=== PATIENT | male | born 1955 | race Caucasian/White ===

== ENCOUNTER 2022-01-19 13:11 | Inpatient (IN) | payer OTHER ==
[2022-01-19 13:41] VITALS: BMI 17.2
[2022-01-19] MEDS ORDERED: IBUPROFEN 400 MG TABLET (FP) PO PRN (13:59)
[2022-01-19] MEDS ORDERED: LOPERAMIDE HCL 2 MG CAPSULE PO PRN (13:59)
[2022-01-19] MEDS ORDERED: NALOXONE HCL (KLOXXADO) 8 MG SPRAY NS PRN (13:59)
[2022-01-19] MEDS ORDERED: IBUPROFEN 600 MG TABLET (FP) PO PRN (13:59)
[2022-01-19] MEDS ORDERED: NICOTINE 10 MG CARTRIDGE (INHALER) IH PRN (13:59)
[2022-01-19] MEDS ORDERED: BISMUTH SUBSALICYLATE 524 MG/30 ML PO PRN (13:59)
[2022-01-19] MEDS ORDERED: methaDONE HCL 10 MG TABLET (FOR DETOX USE ONLY) PO ONE ×2 (13:59→17:30)
[2022-01-19] MEDS ORDERED: MAGNESIUM HYDROX 2400MG/30ML ORAL SUSPENSION 30 ML CUP PO PRN (13:59)
[2022-01-19] MEDS ORDERED: DICYCLOMINE HCL 10 MG CAPSULE PO PRN (13:59)
[2022-01-19] MEDS ORDERED: BENZOCAINE/MENTHOL (CHLORASEPTIC ) LOZENGE MM PRN (13:59)
[2022-01-19] MEDS ORDERED: ACETAMINOPHEN 325 MG TABLET (FP) PO PRN ×2 (13:59)
[2022-01-19] MEDS ORDERED: MAG HYDROX/AL HYDROX/SIMETH 30 ML UNIT-DOSE CUP PO PRN (13:59)
[2022-01-19] MEDS ORDERED: cloNIDine HCL 0.1 MG TABLET PO ONE (14:07)
[2022-01-19] MEDS ORDERED: cloNIDine HCL 0.1 MG TABLET ONE ×2 (14:13→14:19)
[2022-01-19] MEDS: METHOCARBAMOL 500 MG TABLET PO PRN (18:23)
[2022-01-19] MEDS: cloNIDine HCL 0.1 MG TABLET PO PRN (23:06)
[2022-01-19] MEDS: MELATONIN 5 MG TABLETS PO SCH (23:07)
[2022-01-19] MEDS: THIAMINE HCL 100 MG TABLET (FP) PO SCH (23:07)
[2022-01-20] MEDS: amLODIPine BESYLATE 10 MG TABLET (FP) PO SCH (09:55)
[2022-01-20] MEDS: METHOCARBAMOL 500 MG TABLET PO PRN ×2 (09:55→18:16)
[2022-01-20] MEDS: PRENATAL VITAMINS W/ FOLIC ACID TABLET (FP) PO SCH (09:55)
[2022-01-20] MEDS: cloNIDine HCL 0.1 MG TABLET PO PRN (09:55)
[2022-01-20] MEDS ORDERED: methaDONE HCL 10 MG TABLET (FOR DETOX USE ONLY) PO ONE (10:00)
[2022-01-20] MEDS ORDERED: ALBUTEROL SO4 0.083% IH SOL 2.5 MG/3 ML VIAL.NEB. NEB PRN (10:17)
[2022-01-20] MEDS: ALBUTEROL SO4 HFA INHALER IH PRN ×2 (10:27→22:52)
[2022-01-20 12:24] LABS: CALCIUM 9.7 mg/dL (8.5-10.1)
[2022-01-20 12:25] LABS: ALBUMIN 3.5 g/dl (3.4-5.0); BLOOD UREA NITROGEN 22.6 mg/dL (7-18)
[2022-01-20 12:28] LABS: CREATININE 1.2 mg/dL (0.55-1.3)
[2022-01-20 12:29] LABS: BILIRUBIN,TOTAL 0.5 mg/dL (0.2-1); TOT PROT 7.8 g/dl (6.4-8.2)
[2022-01-20 12:30] LABS: HEMATOCRIT 40.5 % (35.4-49); HEMOGLOBIN 13.7 GM/dL (11.7-16.9); MCH 28.5 pg (25.7-33.7); MCHC 33.9 g/dl (32.0-35.9); PLATELET COUNT 218 10^3/uL (134-434); RBC 4.82 M/mm3 (4.00-5.60); RDW 14.5 % (11.9-15.9); WHITE BLOOD COUNT 4.5 K/mm3 (4.0-10.0)
[2022-01-20] MEDS ORDERED: cloNIDine HCL 0.1 MG TABLET PO ONE (17:57)
[2022-01-20] MEDS: MELATONIN 5 MG TABLETS PO SCH (22:51)
[2022-01-20] MEDS: THIAMINE HCL 100 MG TABLET (FP) PO SCH (22:52)
[2022-01-21] MEDS: cloNIDine HCL 0.1 MG TABLET PO PRN (06:29)
[2022-01-21] MEDS: amLODIPine BESYLATE 10 MG TABLET (FP) PO SCH (09:51)
[2022-01-21] MEDS: METHOCARBAMOL 500 MG TABLET PO PRN (09:51)
[2022-01-21] MEDS: PRENATAL VITAMINS W/ FOLIC ACID TABLET (FP) PO SCH (09:51)
[2022-01-21] MEDS: NIFEdipine E.R. 90 MG TABLET PO SCH (09:51)
[2022-01-21] MEDS: ALBUTEROL SO4 HFA INHALER IH PRN ×2 (09:56→20:35)
[2022-01-21] MEDS: THIAMINE HCL 100 MG TABLET (FP) PO SCH (22:46)
[2022-01-21] MEDS: MELATONIN 5 MG TABLETS PO SCH (22:46)
[2022-01-22] MEDS: METHOCARBAMOL 500 MG TABLET PO PRN ×2 (06:02→17:38)
[2022-01-22] MEDS: NIFEdipine E.R. 90 MG TABLET PO SCH (09:17)
[2022-01-22] MEDS: amLODIPine BESYLATE 10 MG TABLET (FP) PO SCH (09:18)
[2022-01-22] MEDS: PRENATAL VITAMINS W/ FOLIC ACID TABLET (FP) PO SCH (09:18)
[2022-01-22] MEDS ORDERED: methaDONE HCL 10 MG TABLET (FOR DETOX USE ONLY) PO ONE (10:00)
[2022-01-22] MEDS: THIAMINE HCL 100 MG TABLET (FP) PO SCH (22:25)
[2022-01-22] MEDS: MELATONIN 5 MG TABLETS PO SCH (22:26)
[2022-01-23 09:13] VITALS: RESP 18
[2022-01-23] MEDS: amLODIPine BESYLATE 10 MG TABLET (FP) PO SCH (10:19)
[2022-01-23] MEDS: NIFEdipine E.R. 90 MG TABLET PO SCH (10:19)
[2022-01-23] MEDS: PRENATAL VITAMINS W/ FOLIC ACID TABLET (FP) PO SCH (10:19)
[2022-01-23] MEDS: ALBUTEROL SO4 HFA INHALER IH PRN (10:20)
[2022-01-23 12:46] VITALS: BP 159/101; PULSE 70; TEMP 97.3
== END 2022-01-23 14:54 | disposition home or self-care (01) | DRG 897 ==
LOC: YASAS 13:11 → Y6N 14:42
PROVIDERS: ADMIT Allergy & Immunology; ATTEND Surgery
PROC: HZ2ZZZZ Detoxification Services for Substance Abuse Treatment (ICD-10-PCS; principal; 2022-01-19)
DX: F11.23 Opioid dependence with withdrawal (principal); F14.20 Cocaine dependence, uncomplicated; F17.210 Nicotine dependence, cigarettes, uncomplicated; I10 Essential (primary) hypertension; J44.9 Chronic obstructive pulmonary disease, unspecified; R07.9 Chest pain, unspecified; Z86.19 Personal history of other infectious and parasitic diseases; Z85.819 Personal history of malignant neoplasm of unspecified site of lip, oral cavity, and pharynx
CPT/HCPCS: 36415; 80053; 85027; 86780; 94640; C9803-CS; U0003; U0005

== ENCOUNTER 2022-01-20 13:51 | Emergency (ER) | payer OTHER ==
[2022-01-20 14:17] VITALS: TEMP 97.8; BMI 17.2
[2022-01-20] MEDS ORDERED: ALBUTEROL SO4 2.5/IPRATROPIUM 0.5 INH SOL 3 ML VIAL.NEB. NEB ONE (14:41)
[2022-01-20] MEDS ORDERED: ALBUTEROL SO4 2.5/IPRATROPIUM 0.5 INH SOL 3 ML VIAL.NEB. NEB SCH (14:45)
[2022-01-20 15:20] VITALS: BP 141/97; RESP 16
[2022-01-20 16:30] VITALS: PULSE 69
== END 2022-01-20 16:31 | disposition home or self-care (01) ==
LOC: JER 13:51
DX: R07.89 Other chest pain (principal)
CPT/HCPCS: 0241U-QW; 36415; 71046-TC-FY; 84484; 99284-25